=== PATIENT | female | born 1975 | race Caucasian/White ===

== ENCOUNTER 2016-08-19 10:08 | Day surgery (SDC) | payer BC ==
[~2016-08-19 10:08] MED LIST: Buffered Lidocaine 1% SYRIN* 5 ML/SYR SYRINGE INTRADERM ONE; Famotidine TAB* 20 MG PO ONE; Metoclopramide TAB* 10 MG PO ONE; Scopolamine 1.5 mg* PATCH TRANSDERM ONE; Sodium Citrate/Citric Acid* 15 ML UDC PO ONE; celeCOXIB CAP* 200 MG PO ONE
[2016-08-19] MEDS ORDERED: celeCOXIB CAP* 100 MG ONE (10:22)
[2016-08-19] MEDS ORDERED: Famotidine TAB* 20 MG ONE (10:22)
[2016-08-19] MEDS ORDERED: Metoclopramide TAB* 10 MG ONE (10:22)
[2016-08-19] MEDS ORDERED: Sodium Citrate/Citric Acid* 15 ML UDC ONE (10:23)
[2016-08-19] MEDS ORDERED: ceFAZolin 2 GM PREMIX(*) 2 GM/50 ML BAG IVPB ONE (10:23)
[2016-08-19] MEDS ORDERED: Scopolamine 1.5 mg* PATCH ONE (10:23)
[2016-08-19] MEDS ORDERED: Buffered Lidocaine 1% SYRIN* 5 ML/SYR SYRINGE ONE (10:24)
[2016-08-19 10:47] LABS: Manual Entry Verification MR; UR Preg Internal Control QC Line Present
[2016-08-19] MEDS ORDERED: Bupivacaine 0.25% EPI 200,000* 30 ML SDV ONE (13:22)
[2016-08-19] MEDS ORDERED: fentaNYL* 50 MCG/ML 2 ML VIAL (100 MCG VIAL) ONE (13:32)
[2016-08-19] MEDS ORDERED: Atracurium* 10 MG/ML 10 ML VIAL ONE (13:32)
[2016-08-19] MEDS ORDERED: fentaNYL* 50 MCG/ML 2 ML VIAL (100 MCG VIAL) IV PRN (14:08)
[2016-08-19] MEDS ORDERED: HYDROcodone/ACETAMIN 5-325 MG* 1 TAB PO PRN (14:08)
[2016-08-19] MEDS ORDERED: DiMENhydriNATE IV* 50 MG/ML VIAL IV PUSH PRN (14:08)
[2016-08-19] MEDS ORDERED: Atropine 1MG/ML INJ* 1 ML VIAL ONE (14:33)
[2016-08-19] MEDS ORDERED: Lidocaine 2% PF * 5 ML VIAL ONE (14:33)
[2016-08-19] MEDS ORDERED: Dexamethasone IV* 4 MG/ML 1 ML (4 MG) ONE (14:33)
[2016-08-19] MEDS ORDERED: Propofol* 10 MG/ML 20 ML BTL IV PUSH ONE (14:33)
[2016-08-19] MEDS ORDERED: Ondansetron INJ* 2 MG/ML VIAL ONE (14:33)
[2016-08-19] MEDS ORDERED: oxyCODONE/Acetamin 5/325 MG* TAB PO PRN (15:07)
[2016-08-19] MEDS ORDERED: DiMENhydriNATE IV* 50 MG/ML VIAL ONE (15:23)
[2016-08-19] MEDS ORDERED: HYDROmorphone* 1 MG/ML 1 ML SYR ONE (15:34)
[2016-08-19] MEDS ORDERED: HYDROcodone/ACETAMIN 5-325 MG* 1 TAB ONE (15:34)
[2016-08-19] MEDS: HYDROmorphone* 1 MG/ML 1 ML SYR IV PRN ×2 (15:35→16:03)
[2016-08-19 18:39] VITALS: BP 124/69
--- NOTE | 2016-08-20 12:13 | OP ---
CC: [facility] OPERATIVE REPORT: DATE OF OPERATION: 08/19/16 DATE OF : 79 SURGEON: Simon Cox MD CERTIFIED DIALYSIS TECHNICIAN: JOHNNIE Arita ANESTHESIOLOGIST: Naman Otto MD ANESTHESIA: General with local. PRE-OP DIAGNOSES: 1. Cholelithiasis. 2. Right upper quadrant abdominal pain. POST-OP DIAGNOSES: 1. Cholelithiasis. 2. Right upper quadrant abdominal pain. OPERATIVE PROCEDURE: Laparoscopic cholecystectomy. ESTIMATED BLOOD LOSS: Minimal. WOUND CLASSIFICATION: II. COMPLICATIONS: None. DRAINS: None. SPECIMENS: Gallbladder with contained gallstones. FINDINGS: No evidence of acute calculous cholecystitis, several large gallstones within the gallbla dder. BRIEF HISTORY: Ms. Anca Carrasco is a 41-year-old woman who has had epigastric and some right- sided abdominal pain, stabbing intermittent in nature after eating meals and her ultrasound has conf irmed gallstones. She is now to undergo an elective cholecystectomy. DESCRIPTION OF PROCEDURE: Written informed consent was obtained, the abdomen was marked with indeli ble ink and preoperative antibiotics were administered. The patient was taken to the operating room and placed in the supine position. Sequential compression devices and a warming blanket were applie d. General anesthesia was administered and the abdomen was prepped and draped in the usual sterile fashion. Time-out verification was completed. A small transverse incision was made just above the umbilicus in the midline. The peritoneal cavity was entered under direct vision. A 12-mm blunt port was inserted and the abdomen was insufflated t o 15 mmHg. Under direct vision, an 11-mm epigastric port was placed and two 5-mm ports were placed in the right upper quadrant abdominal wall. The gallbladder was identified. There was some omental fat adherent to it, but this appeared to be chronic. The gallbladder was bluish in color. The wall was slightly thicker than normal, but had n o evidence of acute inflammation and it was easily grasped and elevated over the liver bed and with care using a combination of sharp and blunt dissection, the omental fat was taken off the gallbladde r down into the infundibular area. Next using careful dissection, the peritoneum along the medial and lateral aspects of the gallbladde r was taken down using a blunt and sharp dissection to expose the cystic duct and artery as they ent ered the gallbladder. I took a significant portion of the inferior part of the gallbladder off the liver bed in this area as well using the critical view technique to assure myself of these two struc tures. The cystic artery as well as the cystic duct appeared to be of normal caliber as it entered the gall bladder, and thus once I was satisfied with this dissection, the cystic duct and artery were doubly clipped and divided without difficulty. The gallbladder was then removed from the liver bed using a cautery and this was placed in an EndoCa tch bag and brought out through the umbilical incision. The liver bed was evaluated and no evidence of bleeding or bile leak. All ports were then removed u nder direct vision of the camera. There was no abdominal wall bleeding. The umbilical fascia was c losed with interrupted 0 Polysorb suture. The skin at all 4 incisions was approximated with subcuti cular 4-0 Polysorb suture. Steri-Strips and sterile dressings were applied. The patient tolerated t he procedure well and was taken to the recovery room in stable condition. [id number]/[facility] #: [id number]
[2016-08-22] MEDS ORDERED: Scopolomine PATCH Remove* 1 NOTE MISC PATCH OFF ONE (06:00)
== END 2016-08-19 19:09 | disposition home or self-care (01) ==
LOC: OR 10:08
PROVIDERS: ATTEND Surgery
DX: K80.10 Calculus of gallbladder with chronic cholecystitis without obstruction (principal)
CPT/HCPCS: 81025; 88304; A9270-GY; J0461; J0690; J1100; J1170; J1240; J2405; J2704; J3010